=== PATIENT | male | born 1970 | race American Indian/Alaskan Native ===

== ENCOUNTER 2016-08-23 06:52 | Day surgery (SDC) | payer BC ==
[2013-08-12 06:55] VITALS: BMI 26.7
[2016-08-23 07:33] LABS: ADD MANUAL DIFF? NO
[2016-08-23 07:40] LABS: BASO # 0.02 K/mm3 (0.0-2.0); BASO % 0.3 % (0.0-3.0); EOS # 0.3 (0.0-0.7); EOS % 5.1 % (1.5-5.0); GRAN # 3.76 (1.4-6.5); GRAN % 60.2 % (50.0-68.0); HEMATOCRIT 48.4 % (42.0-52.0); LYMPH # 1.6 (1.2-3.4); LYMPH % 25.4 % (22.0-35.0); MEAN CELL VOLUME 85.4 fL (80.0-105.0); MEAN CORPUSCULAR HEMOGLOBIN 30.5 pg (25.0-35.0); MEAN CORPUSCULAR HGB CONC 35.7 g/dl (31.0-37.0); MEAN PLATELET VOLUME 10.3 fl (7.0-11.0); MONO # 0.6 (0.1-0.6); PLATELET COUNT 262 10^3/uL (120.0-450.0); RED CELL DISTRIBUTION WIDTH 12.8 % (11.5-14.5); WHITE BLOOD COUNT 6.3 10^3/ul (4.5-11.0)
[2016-08-23 07:51] LABS: BLOOD UREA NITROGEN 14 mg/dL (7-21); CALCIUM 9.3 mg/dL (8.4-10.5); CARBON DIOXIDE 29 mmol/L (21-33); CHLORIDE 97 mmol/L (95-110); GFR AFRICAN-AMERICAN > 60; GLUCOSE,RANDOM 205 mg/dL (70-110); POTASSIUM 4.8 mmol/L (3.6-5.0); SODIUM 136 mmol/L (132-148)
[2016-08-23] MEDS ORDERED: Lidocaine 2% Inj (20ml) ONE (08:08)
[2016-08-23 08:20] LABS: INR 0.98 (0.93-1.08); PARTIAL THROMBOPLASTIN TIME 27.4 Seconds (23.7-30.8)
[2016-08-23] MEDS ORDERED: Midazolam 2 MG/2 ML VIAL ONE ×3 (08:38→09:32)
[2016-08-23] MEDS ORDERED: Iohexol 350mgl/ml 50 ML ONE (08:59)
[2016-08-23] MEDS ORDERED: Iohexol 350 MG/100 ML VIAL ONE ×2 (08:59→09:14)
[2016-08-23] MEDS ORDERED: Sodium Chloride 0.9% 1,000 ML IV SCH (10:00)
--- NOTE | 2016-08-23 10:22 | CARDCATH ---
PROCEDURE DATE: 08/23/2016 HISTORY: The patient is a 46-year-old male who presents with an abnormal stress test. He suffers fr om hypertension, diabetes mellitus, and hypercholesterolemia. The patient has documented CAD in the past, with stents in the LAD in the past. PROCEDURE: Left heart catheterization with coronary angiography and left ventriculogram, followed by PTCA and stent of 3 lesions in the circumflex artery. The right femoral artery was cannulated with a 6-Latvian sheath, which was then exchanged for a 7-Fren ch sheath during the angioplasty. There were no complications. The findings on catheterization revealed a left ventricle that revealed mild inferior wall hypokinesi s. Overall, ejection fraction was approximately 50%. His coronary anatomy revealed a left main artery that was unremarkable. The LAD revealed diffuse atherosclerosis with patent stents in the proximal and distal portion. The circumflex artery was a codominant vessel and revealed a proximal 70% stenoses at the takeoff of a large obtuse marginal branch. In the mid-portion of the AV groove branch of the circumflex there w as 80% stenoses. The large circumflex artery revealed a 70-80% stenosis in its proximal portion, followed by two 99% l esions at a bifurcation of the circumflex artery. The right coronary artery was selectively cannulized and found to be a codominant vessel. The PDA wa s diffusely diseased and revealed 80-90% stenosis. The patient was started on intravenous Angiomax. The 7-Latvian guider was placed in the ostium of the left main artery. Two ATW wires were placed into the circumflex obtuse marginal branch of the bifurcating lesions. A kissing balloon was used at the bifurcating 99% lesions with 2.0 balloons. This was followed by a kissing stent of 2.25 x 12 mm in each of the superior and inferior branches of the circumflex obtuse marginal branch. Repeat coronary angiography revealed an excellent result. The wires were then brought down and placed in the AV groove branch. A 2.25 x 12 mm drug-eluting stent was placed and deployed in the mid-portion of the AV groove branch. Repeat coronary angiography revealed an excellent result. Angio-Seal was used to close the femoral artery site. The patient tolerated the procedure well. In summary, the procedure was successful for PTCA and stent of 3 lesions in the circumflex obtuse mar ginal branch, including kissing drug-eluting stents in the 99% bifurcating large obtuse marginal bran ch. The AV groove branch of the circumflex mid-lesion was also stented with a drug-eluting stent. Cardiac catheterization reveals good LV function with an EF of 50%, with a mild inferior wall hypokin esis. Patent stents in the LAD were noted. Given these findings, the patient will be brought back in 1 week for PTCA and stent of the bifurcatin g obtuse marginal branch, AV groove branch, circumflex lesions. In addition, will consider PTCA of the small, diffusely diseased PDA off the RCA. The PRU was tested, and the patient was therapeutic. Jayson Hernandez MD cc: [id number] TT: 08/23/2016 10:22:11 rio
[2016-08-23] MEDS: Insulin Reg-MEDIUM-Coverage SC SCH ×3 (11:37→22:25)
--- NOTE | 2016-08-23 12:09 | HP ---
HISTORY OF PRESENT ILLNESS: I know patient from the office. He just got done with a cardiac cath wi Dr. Hernandez. He had 3 stents placed, out of 6 vessels that need to be stented. He will have 3 more next week. He is resting comfortably in bed right now. He is a nice 46-year-old man who has a histo ry of hypertension, diabetes, high cholesterol, GERD, fracture of his pelvis at age 12, history of ca rdiac catheterization in 2013, he had 2 of them. Does drink alcohol, no smoking, no drugs. Has bad cardiovascular disease in the father and the grandfather. He does have chest pain. He wears glasses . He is alert and oriented x 3. No problems urinating. No depression or anxiety. ALLERGIES: He has no known drug allergies. REVIEW OF SYSTEMS: No vision changes, no hearing changes, no sore throat. No cough. He does have a little bit of chest pain. No palpitations, no shortness of breath, no abdominal pain, no swelling o f the legs. MEDICATIONS: He has a history of being on metoprolol, metformin, Crestor, Cozaar, Glucotrol, Plavix, Norvasc, aspirin, and Lantus insulin. PHYSICAL EXAMINATION: VITAL SIGNS: 98.2 temp, 69 pulse, 152/92 blood pressure, 18 respiratory rate, 99% O2 sat on room air . HEENT: Head is atraumatic, normocephalic. Extraocular muscles are intact. Throat is moist, no eryt carlos. NECK: Supple, no JVD. HEART: Regular rate. LUNGS: Clear to auscultation. ABDOMEN: Soft, nontender, positive bowel sounds. EXTREMITIES: No edema. NEUROLOGIC: Cranial nerves II-XII grossly intact. SKIN: Warm and dry. LYMPHATIC: No palpable lymphadenopathy. Thyroid is midline. LABORATORY: He had a 136 sodium, potassium 4.8, BUN 14, creatinine 1.1, GFR is greater than 60, suga r is 205, calcium is 9.3. INR is 0.98, white count 6.3, hemoglobin 17.3, hematocrit 40.4, platelets of 262. ASSESSMENT AND PLAN: I will put him back on his regular medications. I will give him Ambien to kwaku harrell. I put him on insulin coverage. The plan is to watch him overnight and discharge him bonny rrow. He is here for coronary artery disease and stent placement as per Dr. Hernandez. Also has hyperten ellen, diabetes, high cholesterol, gastroesophageal reflux disease. The plan is to discharge him bonny sherif if he has a very nice night. Conrado Herrera DO cc: [id number] TT: 08/23/2016 12:08:58 leslie
[2016-08-23 12:18] VITALS: RESP 20
[2016-08-23] MEDS: Aspirin 325 mg EC Tablets PO SCH (17:30)
[2016-08-23] MEDS: GlipiZIDE 10 mg SR Tab PO SCH (17:31)
--- NOTE | 2016-08-23 18:26 | CARD ---
APPROVED REPORT EKG Measurement Heart [id number] RI 164P50 [id number] <Conclusion> Normal sinus rhythm Nonspecific ST abnormality Abnormal ECG
--- NOTE | 2016-08-23 18:29 | CARD ---
APPROVED REPORT EKG Measurement Heart [id number] [place] 158P32 [id number] <Conclusion> Normal sinus rhythm Normal ECG
[2016-08-23] MEDS ORDERED: Morphine 2 mg/ml ISec IVP PRN (18:58)
[2016-08-24 00:09] VITALS: TEMP 97.8
[2016-08-24 05:45] VITALS: O2SAT 100
[2016-08-24 07:26] LABS: ADD MANUAL DIFF? NO
[2016-08-24 07:38] LABS: BASO # 0.01 K/mm3 (0.0-2.0); BASO % 0.1 % (0.0-3.0); EOS # 0.3 (0.0-0.7); EOS % 4.6 % (1.5-5.0); GRAN # 4.08 (1.4-6.5); GRAN % 59.2 % (50.0-68.0); HEMATOCRIT 48.5 % (42.0-52.0); LYMPH # 1.9 (1.2-3.4); LYMPH % 27.9 % (22.0-35.0); MEAN CELL VOLUME 84.6 fL (80.0-105.0); MEAN CORPUSCULAR HEMOGLOBIN 30.2 pg (25.0-35.0); MEAN CORPUSCULAR HGB CONC 35.7 g/dl (31.0-37.0); MEAN PLATELET VOLUME 10.5 fl (7.0-11.0); MONO # 0.6 (0.1-0.6); MONO % 8.2 % (1.0-6.0); PLATELET COUNT 250 10^3/uL (120.0-450.0); RED CELL DISTRIBUTION WIDTH 12.8 % (11.5-14.5); WHITE BLOOD COUNT 6.9 10^3/ul (4.5-11.0)
[2016-08-24 07:48] LABS: ALB/GLOB RATIO 1.2 (1.1-1.8); ALKALINE PHOSPHATASE 65 U/L (38-133); ALT/SGPT 55 U/L (7-56); AST/SGOT 38 U/L (15-59); BILIRUBIN,TOTAL 0.7 mg/dL (0.2-1.3); BLOOD UREA NITROGEN 15 mg/dL (7-21); CALCIUM 8.6 mg/dL (8.4-10.5); CARBON DIOXIDE 29 mmol/L (21-33); CHLORIDE 97 mmol/L (95-110); GFR AFRICAN-AMERICAN > 60; GLUCOSE,RANDOM 201 mg/dL (70-110); POTASSIUM 4.4 mmol/L (3.6-5.0); SODIUM 134 mmol/L (132-148); TOTAL PROTEIN 6.6 g/dL (5.8-8.3)
[2016-08-24] MEDS: Insulin Reg-MEDIUM-Coverage SC SCH (08:30)
--- NOTE | 2016-08-24 09:39 | PN ---
DATE: 08/24/2016 The patient is status post PTCA and stent of the circumflex artery. The patient is chest pain free. PHYSICAL EXAMINATION: VITAL SIGNS: Reveal a blood pressure of 124/74, the heart rate is in the 70s. NECK: Negative JVD. LUNGS: Without rales. HEART: Reveals S1, S2. EXTREMITIES: Without edema. EKG shows no acute changes. Glucose is 201. Hemoglobin is 17. IMPRESSION: 1. Status post percutaneous transluminal coronary angioplasty and stent x 3 of multiple lesions in t he circumflex artery. 2. Coronary artery disease. 3. Stable angina. 4. Diabetes mellitus. 5. Hypercholesterolemia. Given these findings, the patient is stable for discharge today. We will bring the patient back next week for percutaneous transluminal coronary angioplasty and stent of a bifurcating proximal circumfl ex artery. Jayson Hernandez MD cc: [id number] TT: 08/24/2016 09:38:39 Confirmation # [id number] Dictation # [id number] en
[2016-08-24] MEDS: GlipiZIDE 10 mg SR Tab PO SCH (09:44)
[2016-08-24] MEDS: Aspirin 325 mg EC Tablets PO SCH (09:45)
[2016-08-24 09:51] VITALS: BP 152/90; PULSE 90
[2016-08-24] MEDS ORDERED: Metoprolol Succinate 25 mg XL Tab PO SCH (10:00)
--- NOTE | 2016-08-24 11:40 | DS ---
He had a cath yesterday with [address] Hernandez. He is doing very well this morning. No ch est pain, no shortness breath, no abdominal pain. He is very comfortable. He wants to go home. He is eating well. No pain. PHYSICAL EXAMINATION: VITAL SIGNS: 97.8 temp, 70 pulse, 124/74 blood pressure, 20 respiratory rate, 100% O2 sat on room ai r. HEENT: Head is atraumatic, normocephalic. Throat is moist. NECK: Supple. HEART: Regular rate. LUNGS: Clear to auscultation. ABDOMEN: Soft. EXTREMITIES: No edema. MEDICATIONS: He is going to go home on his Ambien, Cozaar, Ecotrin, Glucophage, Glucotrol, Lipitor, Norvasc, Plavix, and Toprol. LABORATORY DATA: He has a 134 sodium, potassium is 4.4, BUN is 15, creatinine 1.1, GFR is greater th an 60, sugar is 195, calcium is 8.6, total bili is 0.7, AST is 38, ALT is 55, alk phos 65, total prot ein 6.6, albumin 3.6. INR is 0.98. White count 6.9, hemoglobin 17.3, hematocrit 48.5, platelets of 250. He will be discharged after Dr. Hernandez sees him this morning. He did very well. He will be back in a few days for the second cath with 3 more stents to be placed. Conrado Herrera DO cc: [id number] TT: 08/24/2016 11:39:33 va
--- NOTE | 2016-08-24 14:02 | CARD ---
APPROVED REPORT EKG Measurement Heart [id number] [place] 156P45 [id number] <Conclusion> Normal sinus rhythm T Inversion in 2,3,AVF,V 4,V5,V6.
== END 2016-08-24 11:37 | disposition home or self-care (01) ==
LOC: CATH 06:52 → 2RSO 10:05 → CATH 08-24 11:37
PROVIDERS: ATTEND Family Medicine
DX: I25.10 Atherosclerotic heart disease of native coronary artery without angina pectoris (principal); I10 Essential (primary) hypertension; E11.9 Type 2 diabetes mellitus without complications; E78.00 Pure hypercholesterolemia, unspecified; K21.9 Gastro-esophageal reflux disease without esophagitis; Z79.02 Long term (current) use of antithrombotics/antiplatelets; Z79.82 Long term (current) use of aspirin; Z79.4 Long term (current) use of insulin
CPT/HCPCS: 36415 ×2; 80048; 80053; 82948 ×2; 85025 ×2; 85027; 85576; 85610; 85730; 86850; 86900; 92928; 93005 ×2; 93458; 99152; 99153; C1725; C1760; C1769 ×2; C1874 ×2; C1887; C2629; C9600; J0583; J1644; J2250; J3010; J7040 ×2; Q9967 ×3

== ENCOUNTER 2016-08-27 06:13 | Day surgery (SDC) | payer BC ==
[2013-08-12 06:55] VITALS: BMI 26.7
[2016-08-27 06:43] LABS: ADD MANUAL DIFF? NO
[2016-08-27] MEDS ORDERED: Nitroglycerin 50mg in D5W 0 ML IV ONE (06:45)
[2016-08-27] MEDS ORDERED: Iodixanol 320 MG/ML 100 ML BOTTLE IV ONE (06:45)
[2016-08-27] MEDS ORDERED: Iodixanol 320 MG/ML 200 ML BOTTLE IV ONE (06:45)
[2016-08-27] MEDS ORDERED: Lidocaine 2% Inj (20ml) ONE (06:45)
[2016-08-27] MEDS ORDERED: Phenylephrine 10 mg/ml Inj ONE (06:45)
[2016-08-27] MEDS ORDERED: Iohexol 350mgl/ml 50 ML ONE (06:45)
[2016-08-27 07:03] LABS: INR 0.99 (0.93-1.08); PARTIAL THROMBOPLASTIN TIME 28.2 Seconds (23.7-30.8)
[2016-08-27 07:05] LABS: BLOOD UREA NITROGEN 13 mg/dL (7-21); CALCIUM 9.1 mg/dL (8.4-10.5); CARBON DIOXIDE 31 mmol/L (21-33); CHLORIDE 99 mmol/L (95-110); CHOLESTEROL 129 mg/dL (130-200); GFR AFRICAN-AMERICAN > 60; GLUCOSE,RANDOM 186 mg/dL (70-110); POTASSIUM 4.3 mmol/L (3.6-5.0); SODIUM 137 mmol/L (132-148)
[2016-08-27 07:09] LABS: BASO # 0.01 K/mm3 (0.0-2.0); BASO % 0.2 % (0.0-3.0); EOS # 0.3 (0.0-0.7); EOS % 6.2 % (1.5-5.0); GRAN # 2.84 (1.4-6.5); HEMATOCRIT 46.8 % (42.0-52.0); LYMPH # 1.5 (1.2-3.4); LYMPH % 28.7 % (22.0-35.0); MEAN CELL VOLUME 85.2 fL (80.0-105.0); MEAN CORPUSCULAR HEMOGLOBIN 30.4 pg (25.0-35.0); MEAN CORPUSCULAR HGB CONC 35.7 g/dl (31.0-37.0); MEAN PLATELET VOLUME 10.6 fl (7.0-11.0); MONO # 0.5 (0.1-0.6); MONO % 9.9 % (1.0-6.0); PLATELET COUNT 245 10^3/uL (120.0-450.0); RED CELL DISTRIBUTION WIDTH 12.6 % (11.5-14.5); WHITE BLOOD COUNT 5.2 10^3/ul (4.5-11.0)
[2016-08-27] MEDS ORDERED: Adenosine 90 mg/30mL IV ONE ×2 (07:32→08:33)
[2016-08-27] MEDS ORDERED: Midazolam 2 MG/2 ML VIAL ONE ×2 (07:42→08:09)
[2016-08-27] MEDS ORDERED: Sodium Chloride 0.9% 1,000 ML IV SCH (09:30)
--- NOTE | 2016-08-27 09:57 | CARDCATH ---
PROCEDURE DATE: 08/27/2016 HISTORY: The patient is a 46-year-old male with multiple cardiac risk factors including diabetes elijah litus who presents with an abnormal stress test and chest pain. He was found to have multivessel cor onary artery disease. The patient underwent a bifurcating obtuse marginal branch stenting of two 99% lesions last week and was brought back for PTCA and stent of an RCA as well as a possible proximal circumflex artery. The left femoral artery was cannulated with a 7-Dominican sheath. There were no complications. The findings on catheterization revealed a left main artery that was unremarkable. The LAD stents were patent. The stents in the bifurcating obtuse marginal branch were patent. The stent in the mid AV groove branch of the circumflex artery was patent. The proximal obtuse marginal branch revealed a 70% stenosis followed by a 60-70% stenosis in the prox imal AV groove branch of the circumflex artery. FFR was done on each branch of the vessel. The FFR was 0.91 on both. The RCA angiogram revealed a subtotally occluded PDA. The patient was started on intravenous Angiomax. An ATW wire was used to cross the multiple lesions in the PDA. A 2.0 balloon followed by a 2.5 balloon was utilized to predilate the PDA. A 2.25 x 30 mm drug-eluting stent was placed and deployed at 12 atmospheres of pressure in the PDA. Repeat coronary angiography revealed an excellent result with no residual stenosis and EDUARDO 3 flow. Angio-Seal was used to close the left femoral artery site. The patient tolerated the procedure well. IN SUMMARY: 1. The procedure was successful for percutaneous transluminal coronary angioplasty and stent of a john btotally occluded posterior descending artery of the right coronary artery. 2. Coronary angiography revealed patent stents in the LAD, in the bifurcating obtuse marginal branch , and in the mid atrioventricular groove branch of the circumflex artery. 3. The 60-70% lesions in the ostium of the obtuse marginal branch and the proximal atrioventricular groove branch of the circumflex were tested with the fractional flow reserve which were both at 0.91 and both were not manipulated. Given these findings, the patient will need to continue on aspirin and Plavix. A strict cardiac risk reduction program was discussed with the patient as well as his . We will continue his aspirin and Plavix indefinitely. The PRU was found to be therapeutic. Jayson Hernandez MD cc: [id number] TT: 08/27/2016 09:57:09 mn
--- NOTE | 2016-08-27 11:46 | HP ---
I know the patient very well from the office and also he was here last / Saturday for cardiac cath with Dr. Hernandez. He just gone today with another cardiac catheterization for another vessel stented. He is resting comfortably in his room in 273. No chest pain or shortness of breath, no abdominal pain at this time. He understands the procedure. He will lay flat for 6 hours and then we will discharge him tomorrow. Hopefully, everything will be okay. He has CAD, chest pain and angina, with stents now. PAST MEDICAL HISTORY: History of hypertension, diabetes, high cholesterol, GERD , fracture of his pelvis at age 12, multiple cardiac catheterizations. SOCIAL HISTORY: He does drink alcohol. No smoking, no drugs. FAMILY HISTORY: He says there is cardiovascular disease with his father and grandfather. REVIEW OF SYSTEMS: No chest pain at this time. He does wear glasses. He is alert and oriented x 3. No problems urinating. No depression or anxiety. No vision changes, hearing changes, sore throat. Cough, he does have a little bit. No chest pain, no palpitations, no shortness of breath, no abdominal pain , no swelling of his legs. Good spirits. Laying calm in bed. He understands the procedure. He has a little bit of an appetite. ALLERGIES: He has no known drug allergies. MEDICATIONS: He is currently on metoprolol, metformin, Crestor, Cozaar, Glucophage, Plavix, Norvasc, aspirin, Lantus insulin and Ambien. Will hold the metformin after he had dye today. PHYSICAL EXAMINATION: VITAL SIGNS: He has a 98.2 temp, 74 pulse, 156/89 blood pressure, 18 respiratory rate, and 99% O2 sat on oxygen. HEENT: Head is atraumatic, normocephalic. Extraocular muscles are intact. Throat is moist, no erythema. Pupils equal, reactive to light and accommodation. Throat is moist. NECK: Supple. HEART: Regular rate. LUNGS: Clear to auscultation. ABDOMEN: Soft, nontender, positive bowel sounds. No guarding, no rebound, no CVA tenderness. EXTREMITIES: Have no edema. NEUROLOGIC: Cranial nerves II-XII grossly intact. He is alert x 3. SKIN: Warm and dry. LYMPHATICS: No palpable lymphadenopathy. Thyroid is midline. He understands the situation. Good spirits. A little bit hungry. He will lay flat for 6 hours. LABORATORY DATA: He has a 137 sodium, potassium 4.3, BUN 13, creatinine 1.1, GFR is greater than 60, sugar is 186, calcium is 9.1. Triglycerides are 59, cholesterol is 129, LDL is 75, HDL is 42. INR is 0.99. White count 5.2, hemoglobin 16.7, hematocrit 46.8, platelets are 245. I will put him back on some of his medications: His Ambien, Glucotrol, insulin coverage. He is on IV fluids. Will check his labs tomorrow. He is here for coronary artery disease, stent placement, chest pain, diabetes, high cholesterol and dictation as per Dr. Hernandez. Conrado Herrera DO cc: [id number] TT: 08/27/2016 10:11:00 ar 08/27/2016 10:45:29 SUZIE
[2016-08-27] MEDS: Insulin Reg-HIGH-Coverage SC SCH ×3 (12:46→21:47)
[2016-08-27] MEDS: GlipiZIDE 10 mg SR Tab PO SCH ×2 (12:46→17:22)
[2016-08-27 18:00] VITALS: RESP 20
--- NOTE | 2016-08-27 18:57 | CARD ---
APPROVED REPORT EKG Measurement Heart [id number] [place] 168P32 [id number] <Conclusion> Normal sinus rhythm Nonspecific T wave abnormality Abnormal ECG
[2016-08-28 06:06] VITALS: O2SAT 97
[2016-08-28 07:47] LABS: ADD MANUAL DIFF? NO
[2016-08-28] MEDS: Insulin Reg-HIGH-Coverage SC SCH ×2 (07:49→12:12)
[2016-08-28 07:57] LABS: BASO # 0.01 K/mm3 (0.0-2.0); BASO % 0.1 % (0.0-3.0); EOS # 0.2 (0.0-0.7); GRAN % 71.1 % (50.0-68.0); HEMATOCRIT 46.1 % (42.0-52.0); LYMPH # 1.4 (1.2-3.4); LYMPH % 18.6 % (22.0-35.0); MEAN CELL VOLUME 83.8 fL (80.0-105.0); MEAN CORPUSCULAR HEMOGLOBIN 30.2 pg (25.0-35.0); MEAN PLATELET VOLUME 10.6 fl (7.0-11.0); MONO # 0.6 (0.1-0.6); MONO % 8.2 % (1.0-6.0); PLATELET COUNT 242 10^3/uL (120.0-450.0); RED CELL DISTRIBUTION WIDTH 12.6 % (11.5-14.5); WHITE BLOOD COUNT 7.3 10^3/ul (4.5-11.0)
[2016-08-28 08:06] LABS: ALB/GLOB RATIO 1.1 (1.1-1.8); ALKALINE PHOSPHATASE 63 U/L (38-133); ALT/SGPT 67 U/L (7-56); AST/SGOT 95 U/L (15-59); BLOOD UREA NITROGEN 16 mg/dL (7-21); CALCIUM 8.3 mg/dL (8.4-10.5); CARBON DIOXIDE 25 mmol/L (21-33); CHLORIDE 99 mmol/L (98-107); GFR AFRICAN-AMERICAN > 60; GLUCOSE,RANDOM 230 mg/dL (70-110); POTASSIUM 4.3 mmol/L (3.6-5.0); SODIUM 131 mmol/L (132-148); TOTAL PROTEIN 6.5 g/dL (5.8-8.3)
[2016-08-28] MEDS: GlipiZIDE 10 mg SR Tab PO SCH (10:28)
[2016-08-28 12:38] VITALS: BP 128/62; PULSE 94; TEMP 98.7
--- NOTE | 2016-08-28 13:14 | PN ---
DATE: 08/28/2016 The patient is ambulating without symptoms. PHYSICAL EXAMINATION: VITAL SIGNS: The blood pressure is 128/62. The heart rate is in the 80s. NECK: Negative JVD. LUNGS: Without rales. HEART: Reveals S1, S2. EXTREMITIES: Without edema. The left groin site is stable. LABORATORIES: Reveal hemoglobin of 16.6. Chemistries: Glucose is 230, BUN and creatinine are unrem arkable. IMPRESSION: 1. Stable post percutaneous transluminal coronary angioplasty and stent of the right coronary artery . 2. Recent percutaneous transluminal coronary angioplasty and stent of subtotal circumflex artery. 3. Diabetes mellitus. 4. Hypercholesterolemia. PLAN: Given these findings, the patient is stable post PTCA and stent. The patient can be discharge d today. Followup and instructions have been given to the patient. I have reviewed his medications with him a nd he understands. The patient will see me in 3-4 weeks in the office. Jayson Hernandez MD cc: [id number] TT: 08/28/2016 13:13:50 Confirmation # [id number] Dictation # [id number] leslie
--- NOTE | 2016-08-28 16:26 | DS ---
The patient resting this morning comfortably in bed. He slept very well last night. No chest pain or shortness breath, no abdominal pain. He is in good spirits. He had a cath yesterday with Dr. Hernandez. PHYSICAL EXAMINATION: VITAL SIGNS: 98.2 temp, 85 pulse, 145/79 blood pressure, 20 respiratory rate, 97% O2 sat on room air. HEENT: Head is atraumatic, normocephalic. Throat is moist. NECK: Supple. HEART: Regular rate. LUNGS: Clear to auscultation. ABDOMEN: Soft, nontender, positive bowel sounds. EXTREMITIES: No edema. He is on Ambien, Ecotrin, Glucotrol, insulin coverage, Lipitor, Norvasc and Plavix. He will go back home on his regular medication. We did not give him all his medication because of the dye he had in the catheterization. He has 131 sodium, potassium 4.3, BUN , creatinine 1, GFR is greater than 60, sugar is at 225, calcium is 8.3, AST is 95, ALT 67, alk phos 53, total protein 6.5. A little elevation in his LFTs probably secondary to the medicine given in cath. He will be seen by Dr. Hernandez before he goes home today. He has coronary artery disease, status post cardiac catheterization and stent placement , diabetes, high cholesterol and now a little bit elevated liver enzymes. He will be discharged today after Dr. Hernandez sees him. Will go home on his regular medications from home, which are metformin, Cozaar, Lantus, Glucotrol, Plavix, Norvasc, Ambien, Crestor, Toprol, and aspirin. I will recheck him in a week, and I will recheck his LFTs next week and he will discharged after Dr. Hernandez sees him. Conrado Herrera DO cc: [id number] TT: 08/28/2016 16:25:16 an MTDD
--- NOTE | 2016-08-28 18:29 | CARD ---
APPROVED REPORT EKG Measurement Heart [id number] [place] 160P29 [id number] <Conclusion> Normal sinus rhythm Nonspecific T wave abnormality Abnormal ECG
== END 2016-08-28 15:05 | disposition home or self-care (01) ==
LOC: CATH 06:13 → 2RSO 09:36 → CATH 08-28 15:05
PROVIDERS: ATTEND Family Medicine
DX: I25.10 Atherosclerotic heart disease of native coronary artery without angina pectoris (principal); E11.9 Type 2 diabetes mellitus without complications; E78.00 Pure hypercholesterolemia, unspecified; K21.9 Gastro-esophageal reflux disease without esophagitis; I10 Essential (primary) hypertension; R74.8 Abnormal levels of other serum enzymes; Z79.4 Long term (current) use of insulin; Z79.82 Long term (current) use of aspirin; Z79.84 Long term (current) use of oral hypoglycemic drugs; Z79.02 Long term (current) use of antithrombotics/antiplatelets
CPT/HCPCS: 36415 ×2; 80048; 80053; 80061; 82948 ×2; 85025 ×2; 85027; 85610; 85730; 86850; 86900; 93005 ×2; 93571; 93572; 99152; 99153; C1725 ×2; C1760; C1769 ×3; C1874; C1887 ×2; C2629; C9600; J0153; J0583; J1644; J2250; J3010; J7030; J7040; Q9967 ×2

== ENCOUNTER 2018-09-18 05:55 | Outpatient (CLI) | payer BC | END 2018-09-18 05:56 | disposition home or self-care (01) | LOC: CARDIO 05:55 | DX: E11.9 Type 2 diabetes mellitus without complications (principal) ==